=== PATIENT | male | born 1955 | race Caucasian/White ===

== ENCOUNTER 2023-03-31 20:09 | Day surgery (SDC) | payer MEDICARE, SELFPAY ==
--- NOTE | ~2023-03-31 | XR_ITS ---
EXAMINATION: XR cystogram DATE: 03/31/2023 22:50 SERVICE ENGINEER INDICATION: URETHERAL DIALATION . TECHNIQUE: 4 fluoroscopic images of the pelvis were obtained during ureteral dilation. I was not pres ent during the procedure. Fluoroscopy exposure time was 42.4 seconds. Air Kerma 15.80 mGy. DAP 0.6603 2 mGym2. COMPARISON: None FINDINGS: Wire and catheter access to the urinary bladder followed by contrast instillation. No filling defects . Multiple pelvic phleboliths. IMPRESSION: Fluoroscopic documentation of ureteral dilation. Please refer to the operative note for complete proc edural details . Reviewed, dictated and finalized at location K. ICE ENGINEER IMPRESSION: Fluoroscopic documentation of ureteral dilation. Please refer to the operative note for complete procedural details .
--- NOTE | 2023-03-31 20:33 | PC.NURSE ---
This RN and MD Gross attempted gonzales catheter with coude unsuccessfully.
[2023-03-31] MEDS: LIDOCAINE HCL 2% GEL UROJET 10 ML PKG (20:35)
[2023-03-31] MEDS: MORPHINE SULFATE (*CRX) 4 MG/ML INJ IV PUSH (20:53)
[2023-03-31] MEDS: ONDANSETRON INJ 4 MG/2 ML VIAL IV PUSH (20:53)
[2023-03-31 21:00] LABS: Basophils Percent Auto 0.2 % (0.2-1.2); Eosinophils Percent Auto 0.2 % (0-4.4); Hematocrit 48.7 % (42.0-52.0); Hemoglobin 16.2 g/dL (14.0-18.0); Immature Granulocyte Absolute 0.04 K/mm3 (0.00-0.031); Immature Granulocyte Percent A 0.4 % (0-0.5); Lymphocytes Absolute Auto 1.32 K/mm3 (0.9-3.2); Lymphocytes Percent Auto 13.9 % (18.3-44.2); Mean Corpuscular HGB Conc 33.3 g/dl (32-36); Mean Corpuscular Hemoglobin 32.5 pg (26-34); Mean Corpuscular Volume 97.8 fl (80-100); Mean Platelet Volume 10.3 fl (7.4-10.4); Monocytes Absolute Auto 0.9 K/mm3 (0.1-0.6); Monocytes Percent Auto 9.2 % (2.6-8.5); Neutrophils Absolute Auto 7.2 K/mm3 (1.3-6.7); Neutrophils Percent Auto 76.1 % (45.5-73.1); Platelet Count Result 245 k/mm3 (150-375); Red Blood Count 4.98 M/mm3 (4.6-6.20); Red Cell Distribution Width 13.3 % (11.5-14.5); White Blood Count 9.5 K/mm3 (4.5-10.0)
[2023-03-31 21:10] LABS: Alanine Aminotransferase 27 U/L (6-50); Albumin Level 4.8 g/dL (3.5-5.1); Alkaline Phosphatase 98 U/L (38-126); Anion Gap 14 mmol/L (8-16); Aspartate Amino Transferase 31 U/L (17-59); Bilirubin,Total 1.7 mg/dL (0.2-1.3); Blood Urea Nitrogen 25 mg/dL (9-20); Calcium 10.1 mg/dL (8.4-10.2); Carbon Dioxide 21 mmol/L (22-30); Chloride 105 mmol/L (98-107); Estimated CRCL calculation 81 ml/min; Estimated Glomerular Filt Rate > 60; Glucose 119 mg/dL (65-110); Potassium 3.9 mmol/L (3.4-5.0); Sodium 140 mmol/L (137-145)
[2023-03-31] MEDS: HYDROmorphone HCL INJ (*CRX) 1 MG/ML SYR IV PUSH (21:19)
--- NOTE | 2023-03-31 21:25 | WPDURCON ---
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 The patient has acute urinary retension as significant discomfort. Given the need to have operative intervention for his contracture multiple times in the past, we will plan to take the patient tonight for cystoscopy and urethral dilation. Risks, benefits, alternatives were discussed the patient has . They agreed to proceed. If catheterization is not possible, we will place a suprapubic tube. Risks of procedure include not limited to infection, bleeding, pain, recurrence of problem, injury to surrounding structures, complication of anesthesia. We discussed with patient the patient understands agrees to proceed Urology Consult Note HPI Date Seen: 03/31/23 Requesting Physician: Truong Gaines MD Primary Care Provider: PHYSICIAN NOT ON STAFF Consult Narrative Narrative: Cordell Hankins is a 68 year old male with a history of prostate cancer who underwent radical prostatectomy in 2018. He had subsequent radiation therapy in 2019 and then salvage radiation therapy in 2020. Patient developed a urethral contracture and underwent dilation in October of 2020. Subsequently he had additional bladder neck contracture in January of 2021, and again most recently he is s/p urethral dilation/DVIU of bladder neck contracture in January of 2022. The patient has had consultation with reconstructive urologist at [facility] who did not recommend definitive therapy. The patient had been doing home intermittent catheterization however has been unable to urinate or catheterize since approximately noon today. The patient presents to the emergency department due to severe abdominal discomfort and distention. There has been inability of the patient to catheterize himself at home as well as the failed attempt by the emergency department staff. [facility] Past Medical History Medical History (Updated 03/31/23 @ 21:49 by Truong Gaines MD) Urethral stricture Meds Home Medications and Allergies Allergies Allergy/AdvReac Type Severity Reaction Status Date / Time No Known Allergies Allergy Verified 03/31/23 20:18 Exam Narrative: The patient is awake and alert. He is no acute distress. His breathing is unlabored. Abdomen soft moderate suprapubic tenderness. Patient has normal-appearing phallus. There is blood at the meatus. Results Labs 11/29/23 20:52 03/31/23 20:52 Labs: Short CBC 03/31/23 Range/Units 20:52 WBC 9.5 (4.5-10.0) K/mm3 Hgb 16.2 (14.0-18.0) g/dL Hct 48.7 (42.0-52.0) % Plt Count 245 (150-375) k/mm3 BMP 03/31/23 20:52 Sodium 140 Potassium 3.9 Chloride 105 Carbon Dioxide 21 L BUN 25 H Creatinine 0.90 Glucose 119 H Calcium 10.1 Liver Function 03/31/23 Range/Units 20:52 Total Bilirubin 1.7 H (0.2-1.3) mg/dL AST 31 (17-59) U/L ALT 27 (6-50) U/L Alkaline Phosphatase 98 (38-126) U/L Albumin 4.8 (3.5-5.1) g/dL
[2023-03-31 21:27] VITALS: BP 112/72; PULSE 94; RESP 16; O2SAT 98
--- NOTE | 2023-03-31 22:01 | ED.GENADULT ---
HPI - General Adult General Chief complaint: Urogenital-Male Stated complaint: Urinary retention Time Seen by Provider: 03/31/23 20:16 History of Present Illness HPI narrative: patient is a 68-year-old gentleman who presents to the emergency department with chief complaint of urinary retention. Patient reports he has had issues with urinary retention and difficulty passing a Chin to describe tissue prostate cancer. The patient states that daily last urinated around noon patient reports that he called Urology and they are recommended the emergency department. Related Data Allergies Allergy/AdvReac Type Severity Reaction Status Date / Time No Known Allergies Allergy Verified 03/31/23 20:18 Review of Systems Review of Systems: A 10 system review of systems was completed on the patient and is negative except for what is stated in the HPI. Nursing and ancillary documentation was reviewed. [facility] Past Medical History Medical History Urethral stricture Exam Narrative: GENERAL: Well-appearing, well-nourished, and in Moderate acute paindistress. HEAD: Normocephalic, atraumatic. EYES: PERRLA and EOMI. ENT: Nares clear, no rhinorrhea or epistaxis. Mucous membranes moist. NECK: Supple. CHEST: Clear to auscultation. No respiratory distress. HEART: Regular rate and rhythm. No murmur heard. Normal peripheral pulses. ABDOMEN: Soft, nontender, nondistended, normal active bowel sounds. : No trauma to the urethra. EXTREMITIES: Normal range of motion. No edema. SKIN: Warm, dry, no rash. NEURO: No focal deficits. Alert and oriented x3. PSYCH: Normal mood and affect. Course Vital Signs Vital signs: Vital Signs Pulse Rate 94 03/31/23 21:27 Respiratory Rate 16 03/31/23 21:27 Blood Pressure 112/72 03/31/23 21:27 Pulse Oximetry 98 03/31/23 21:27 Pulse Rate 94 03/31/23 21:27 Respiratory Rate 16 03/31/23 21:27 Blood Pressure 112/72 03/31/23 21:27 Pulse Oximetry 98 03/31/23 21:27 Medical Decision Making MDM Narrative Medical decision making narrative: Differential diagnosis includes urinary retention, GI, renal failure attempts were made to pass a Chin catheter in the emergency department without success. The case was discussed with Urology who plans to take patient to the operating room for cystoscopy and Chin catheter placement. Vital Signs Vital Signs: Vital Signs Pulse Rate 94 03/31/23 21:27 Respiratory Rate 16 03/31/23 21:27 Blood Pressure 112/72 03/31/23 21:27 Pulse Oximetry 98 03/31/23 21:27 Pulse Rate 94 03/31/23 21:27 Respiratory Rate 16 03/31/23 21:27 Blood Pressure 112/72 03/31/23 21:27 Pulse Oximetry 98 03/31/23 21:27 Lab Data 03/31/23 20:52 03/31/23 20:52 Labs: Lab Results 03/31/23 Range/Units 20:52 WBC 9.5 (4.5-10.0) K/mm3 RBC 4.98 (4.6-6.20) M/mm3 Hgb 16.2 (14.0-18.0) g/dL Hct 48.7 (42.0-52.0) % MCV 97.8 (80-100) fl MCH 32.5 (26-34) pg MCHC 33.3 (32-36) g/dl RDW 13.3 (11.5-14.5) % Plt Count 245 (150-375) k/mm3 MPV 10.3 (7.4-10.4) fl Immature Gran % (Auto) 0.4 (0-0.5) % Neut % (Auto) 76.1 H (45.5-73.1) % Lymph % (Auto) 13.9 L (18.3-44.2) % [place] % (Auto) 9.2 H (2.6-8.5) % Eos % (Auto) 0.2 (0-4.4) % Baso % (Auto) 0.2 (0.2-1.2) % Lymph # (Auto) 1.32 (0.9-3.2) K/mm3 [place] # (Auto) 0.9 H (0.1-0.6) K/mm3 Eos # (Auto) 0.0 (0-0.3) K/mm3 Baso # (Auto) 0.0 (0.0-0.1) K/mm3 Abs Immat Gran (auto) 0.04 H (0.00-0.031) K/mm3 Absolute Neuts (auto) 7.2 H (1.3-6.7) K/mm3 Absolute Nucleated RBC 0.0 (0.0-0.012) K/mm3 Nucleated RBC % 0.0 (0.0-0.2) % Sodium 140 (137-145) mmol/L Potassium 3.9 (3.4-5.0) mmol/L Chloride 105 (98-107) mmol/L Carbon Dioxide 21 L (22-30) mmol/L Anion Gap 14 (8-16) mmol/L BUN 25 H (9-20) mg/dL Creatinine 0.
--- NOTE | 2023-03-31 22:16 | WPDANESEPPF ---
Anes - Initial Pre Proc Eval Procedure: Operation Date: 03/31/23 22:30 Proposed Procedures p Cystoscopy, Urethral Dilatation - Truong Gaines MD s Cystoscopy,Insertion Suprapubic Catheter - Truong Gaines MD Date/Time: 03/31/23 22:16 Surgeon: Truong Gaines MD Pre Op Diagnosis: Urinary retention Patient Data Age: 68 Gender: M Height: 1.8 m Weight: 99.79 kg Last Vital Signs Pulse 94 03/31/23 21:27 Resp 16 03/31/23 21:27 BP 112/72 03/31/23 21:27 Pulse Ox 98 03/31/23 21:27 Allergies Allergy/AdvReac Type Severity Reaction Status Date / Time No Known Allergies Allergy Verified 03/31/23 20:18 Laboratory Tests 03/31/23 20:52 WBC 9.5 K/mm3 (4.5-10.0) RBC 4.98 M/mm3 (4.6-6.20) Hgb 16.2 g/dL (14.0-18.0) Hct 48.7 % (42.0-52.0) MCV 97.8 fl (80-100) MCH 32.5 pg (26-34) MCHC 33.3 g/dl (32-36) RDW 13.3 % (11.5-14.5) Plt Count 245 k/mm3 (150-375) MPV 10.3 fl (7.4-10.4) Immature Gran % (Auto) 0.4 % (0-0.5) Neut % (Auto) 76.1 H % (45.5-73.1) Lymph % (Auto) 13.9 L % (18.3-44.2) [place] % (Auto) 9.2 H % (2.6-8.5) Eos % (Auto) 0.2 % (0-4.4) Baso % (Auto) 0.2 % (0.2-1.2) Lymph # (Auto) 1.32 K/mm3 (0.9-3.2) [place] # (Auto) 0.9 H K/mm3 (0.1-0.6) Eos # (Auto) 0.0 K/mm3 (0-0.3) Baso # (Auto) 0.0 K/mm3 (0.0-0.1) Abs Immat Gran (auto) 0.04 H K/mm3 (0.00-0.031) Absolute Neuts (auto) 7.2 H K/mm3 (1.3-6.7) Absolute Nucleated RBC 0.0 K/mm3 (0.0-0.012) Nucleated RBC % 0.0 % (0.0-0.2) Sodium 140 mmol/L (137-145) Potassium 3.9 mmol/L (3.4-5.0) Chloride 105 mmol/L (98-107) Carbon Dioxide 21 L mmol/L (22-30) Anion Gap 14 mmol/L (8-16) BUN 25 H mg/dL (9-20) Creatinine 0.90 mg/dL (0.7-1.3) Estim Creat Clear Calc 81 ml/min Estimated GFR > 60 (59 - ) Glucose 119 H mg/dL (65-110) Calcium 10.1 mg/dL (8.4-10.2) Total Bilirubin 1.7 H mg/dL (0.2-1.3) AST 31 U/L (17-59) ALT 27 U/L (6-50) Alkaline Phosphatase 98 U/L (38-126) Total Protein 8.0 g/dL (6.3-8.2) Albumin 4.8 g/dL (3.5-5.1) Patient hx anesthesia problems: none Family hx anesthesia problems: none Results Review: All pre-operative results and documents have been reviewed as part of the pre-operative evaluation. [facility] Past Medical History Medical History Urethral stricture Anes - Eval Final PreProcedure Day of Procedure 03/31/23 22:16 Patient weight: obese Heart: irregular rhythm Lungs: clear to auscultation Airway: Mallampati scale class II Neurological: alert and oriented Last oral intake: >/= 8 hours ASA classification: III Emergent: no Anesthetic plan: proceed Anesthesia type and monitoring: general ETT and standard monitoring Results Review: All pre-operative results and documents have been reviewed as part of the pre-operative evaluation. Informed Consent: The patient's anesthetic plan and its attendant risks and benefits were discussed with the patient/family/POA. Questions were solicited and answers provided to the satisfaction of the patient/family/POA.
[2023-03-31] MEDS: ceFAZolin 2 GM/D5W 50 ML 2 GM/50 ML BAG IVPB (22:27)
--- NOTE | 2023-03-31 23:03 | W.PM.PROC2 ---
Procedure Note - Detailed Date of Procedure 03/31/23 Pre-op Diagnosis Urinary retention, urethral stricture disease, bladder neck contracture Post-op Diagnosis Same Procedure Performed Cystoscopy, retrograde urethrogram, cystogram, urethral dilation, complex Chni catheter insertion Surgeon Truong Gaines MD Anesthesia General Findings Calcified, dense bladder neck contracture approximately 4 F dilated to 20 F with Amplatz dilation Description of Procedure Informed consent was obtained. Patient taken the operating. He was given preoperative IV antibiotics. He was induced anesthesia. He was prepped and draped in normal sterile fashion. A flexible cystoscope was inserted through the urethra up to the bladder neck where a dense calcified stricture was encountered. There was no visible lumen. I probed the contracture with a Sensor wire and was able to identify a 4 F urethral stricture. The wire passed through the stricture into what appeared to be the bladder. We used fluoroscopy to confirm appropriate placement of the wire with a retrograde urethrogram. We then dilated with an 810 coaxial dilator. There was return of poncho urine. We felt comfortable at this time given return of urine and fluoroscopy to proceed with urethral dilation. We used the Amplatz dilation set to dilate up to 20 F. Over a wire we then advanced the flexible cystoscope and inspected the bladder. There was poor visualization however we will to confirm appropriate placement of the wire and no significant clot or stone in the bladder. At this point we then placed a 16 F [place] tip catheter over the wire a cystogram was performed showing no extravasation inappropriate catheter placement. Patient was then awakened taken recovery room stable condition Complications No immediate complications Condition Stable Disposition PACU
[2023-03-31 23:10] VITALS: BP 139/72; PULSE 63; RESP 16; TEMP 36.4; O2SAT 97
[2023-03-31] MEDS: LACTATED RINGERS 1,000 ML 30 ML IV CONT (23:10)
[2023-03-31 23:25] VITALS: BP 126/73; PULSE 56; RESP 20; O2SAT 99
[2023-03-31 23:31] LABS: Appearance Urine Turbid (Clear); Bilirubin Urine 1+ (Negative); Blood Urine 3+ (Negative); Color Urine Red (Yellow); Glucose Urine UA Negative (Negative); Ketones Urine Negative (Negative); Leukocyte Esterase Ur 1+ LEU/UL (Negative); Need Manual Microscopic Reviewed; Nitrate Urine Negative (Negative); Non Pathogenic Casts 0-2; Protein Urine 2+ mg/dL (Negative); RBC Urine >100 /hpf (0-2); Specific Grav Ur 1.009 (1.001-1.035); Squamous Epithelial Cell Urine Occasional /hpf (Few); Urobilinogen Urine 0.2 mg/dL (<2.0)
[2023-03-31 23:32] LABS: Bacteria Urine 1+ /hpf
[2023-03-31 23:33] LABS: Add Urine Microscopic? YES
[2023-03-31 23:35] VITALS: BP 127/65; PULSE 62; RESP 15; O2SAT 100
[2023-03-31 23:48] VITALS: BP 128/62; PULSE 50; RESP 16
[2023-04-01 00:07] VITALS: BP 125/68; PULSE 60; RESP 16
== END 2023-04-01 00:17 | disposition home or self-care (01) ==
LOC: ANHED 21:13 → ANHSURGERY 21:16
PROVIDERS: Emergency Provider Emergency Medicine; Visit Provider Urology
PROC: 0T7D8ZZ Dilation of Urethra, Via Natural or Artificial Opening Endoscopic (ICD-10-PCS; CPT 52281; principal; 2023-03-31 22:30)
DX: N35.919 Unspecified urethral stricture, male, unspecified site (principal); N32.0 Bladder-neck obstruction; Z85.46 Personal history of malignant neoplasm of prostate; Z92.3 Personal history of irradiation; E66.9 Obesity, unspecified; Z68.30 Body mass index [BMI] 30.0-30.9, adult
CPT/HCPCS: 52281; 36415; 51600; 74430; 80053; 81001; 85025; 87086; 96374; 96375; 99285; C1726; C1769; J0330; J0690; J1170; J2270; J2405; J2704; J3010; J7120; Q9966; Q9967